=== PATIENT | male | born 1960 | race Hispanic/Latino ===

== ENCOUNTER 2017-01-01 08:39 | Day surgery (SDC) | payer OTHER ==
--- NOTE | 2017-01-01 13:15 | Anesthesia Day of Surgery ---
Anesthesia Day of Surgery - Day of Surgery Patient Examined: Yes Patient H&P Reviewed: Yes Patient is NPO: Yes
[2017-01-01] MEDS ORDERED: TRANSDERM-SCOP TD NR (13:16)
--- NOTE | 2017-01-01 13:16 | Anesthesia Consultation ---
Anesthesia Consult and Med Hx Date of service: 01/01/17 - Airway Anesthetic Teeth Evaluation: Good, Caps (top left molar) ROM Head & Neck: Adequate Mental/Hyoid Distance: Adequate Mallampati Class: Class II Intubation Access Assessment: Probably Good - Pulmonary Exam CTA: Yes - Cardiac Exam Cardiac Exam: RRR - Pre-Operative Health Status ASA Pre-Surgery Classification: ASA3 Proposed Anesthetic Plan: General - Pulmonary Hx Smoking: Yes (former) Hx Asthma: No Hx Sleep Apnea: No - Cardiovascular System Hx Hypertension: Yes - Central Nervous System Hx Seizures: No CVA: No - Gastrointestinal Hx Gastroesophageal Reflux Disease: Yes - Endocrine Hx Renal Disease: No (stones) Hx Non-Insulin Dependent Diabetes: Yes Hx Thyroid Disease: No - Other Systems Hx Obesity: Yes - Additional Comments Anesthesia Medical History Comments: PONV
[2017-01-01] MEDS ORDERED: ZOFRAN IV PRN (13:17)
[2017-01-01] MEDS ORDERED: NACL BACTERIOSTATIC INFILTRATI ONE (13:27)
[2017-01-01] MEDS ORDERED: HEPARIN SUB-Q NR (13:45)
[2017-01-01] MEDS ORDERED: LACTATED RINGERS 1,000 ML IV SCH (14:00)
[2017-01-01] MEDS ORDERED: NACL 0.9% 1000 ML 1,000 ML IV SCH (14:00)
[2017-01-01] MEDS ORDERED: VERSED IV NR (14:00)
[2017-01-01] MEDS ORDERED: ANCEF/STERILE WATER 2 GM/20 ML IV NR (14:00)
[2017-01-01] MEDS ORDERED: PEPCID IV NR (14:00)
[2017-01-01] MEDS ORDERED: DECADRON ONE (14:32)
[2017-01-01] MEDS ORDERED: QUELICIN ONE (14:32)
[2017-01-01] MEDS ORDERED: SUBLIMAZE ONE ×2 (14:32→15:16)
[2017-01-01] MEDS ORDERED: XYLOCAINE MPF 2% ONE (14:32)
[2017-01-01] MEDS ORDERED: DIPRIVAN 10 MG/ML IV ONE ×2 (14:32→15:11)
[2017-01-01] MEDS ORDERED: ZOFRAN ONE (14:32)
[2017-01-01] MEDS ORDERED: MARCAINE-EPI/PF 0.25%-1:200,000 INFILTRATI ONE ×2 (14:50→14:55)
[2017-01-01] MEDS ORDERED: DILAUDID ONE (14:56)
[2017-01-01] MEDS ORDERED: ePHEDrine SULFATE ONE (15:22)
--- NOTE | 2017-01-01 15:44 | Post Operative Note ---
Pre-op diagnosis: Incarcerated ventral hernia Post-op diagnosis: same Findings: Incarcerated omentum Procedure: Open repair with medium Ventralex mesh Anesthesia: MILLER Window Glazier: CONNIE BEAN Estimated blood loss: minimal Pathology: none Condition: stable Disposition: PACU
[2017-01-01] MEDS ORDERED: DILAUDID IV PRN (16:20)
[2017-01-01] MEDS: DILAUDID IV PRN ×4 (16:25→17:00)
--- NOTE | 2017-01-01 17:59 | Post Anesthesia Evaluation ---
- Post Anesthesia Evaluation Patient Participated: Yes Airway Patent: Yes Stable Respiratory Function: Yes Nausea/Vomiting: No Temp > 96.8F: Yes Pain Manageable: Yes Adequeate Hydration: Yes Anesthesia Complications: No Block Receding Appropriately: Not Applicable Patient on Ventilator: No
[2017-01-01 19:41] VITALS: BP 139/94
--- NOTE | 2017-01-04 14:52 | Operative Report ---
Operative Report Operative Report: Date of operation: 01/01/2017 Preoperative diagnosis: incarcerated ventral hernia Postoperative diagnosis: same Operation: open repair of incarcerated ventral hernia with medium ventralex mesh Surgeon: Josh Dukes M.D. Findings: Incarcerated omentum Anesthesia: GETA EBL: Minimal There were no complications, drains or cultures. Description of procedure: Patient was placed supine on the operating room table. After adequate general anesthesia was obtained, the abdomen was prepped and draped. A small incision was made over the incarcerated ventral hernia. The hernia sac was immediately identified in the subcutaneous plane. This was dissected away from the adjacent tissue down to its fascial margins. The sac was then entered and was found to contain incarcerated omentum. The omentum was freed up from the hernia sac and was reduced back into the peritoneal cavity. The hernia sac was then excised down to its fascial margins. The fascial defect was then repaired with a medium piece of ventral ex mesh which was placed within the peritoneal cavity. He was then secured to the fascia with multiple interrupted sutures of 0 Ethibond. The subcutaneous wound was irrigated with warm saline and the wound checked for hemostasis which was excellent. Subcutaneous tissue was approximated with a running suture of 3-0 Vicryl and the skin approximated with a running subcuticular suture of 4-0 Monocryl. A sterile absorbent dressing was applied. Patient tolerated the procedure well. Patient was extubated in the operating room and was then taken to the PACU in stable condition.
== END 2017-01-01 18:25 | disposition home or self-care (01) ==
LOC: OR 08:39
PROVIDERS: ATTEND Surgery
DX: K43.6 Other and unspecified ventral hernia with obstruction, without gangrene (principal); E11.9 Type 2 diabetes mellitus without complications; I10 Essential (primary) hypertension; K21.9 Gastro-esophageal reflux disease without esophagitis; E66.9 Obesity, unspecified; Z68.31 Body mass index [BMI] 31.0-31.9, adult; Z87.891 Personal history of nicotine dependence; Z88.5 Allergy status to narcotic agent; Z79.84 Long term (current) use of oral hypoglycemic drugs; Z79.899 Other long term (current) drug therapy
CPT/HCPCS: 49561; 49568; 82962; C1781; J0330; J0690; J1100; J1170; J1644; J2250; J2405; J2704; J3010; J7030